=== PATIENT | female | born 1965 | race Caucasian/White ===

== ENCOUNTER → 2020-07-24 | Outpatient (REF) | payer OTHER ==
[~2020-07-24] MED LIST: ACYC400T PO; DIFL200T PO; LEVO30TA PO; ONDA8TAB10 PO; PRED10TA2 PO; PRED50TA PO; PROC10TA4 PO; ZYLO300T6 PO
== END ==
LOC: M LAB REF 15:23
PROVIDERS: ATTEND Otolaryngology
DX: D36.7 Benign neoplasm of other specified sites (principal)

== ENCOUNTER → 2020-07-27 | Outpatient (CLI) | payer OTHER ==
[~2020-07-27] MED LIST changes: +ISOVUE-370 76% 100ML VIAL As Ordered ONE
--- NOTE | 2020-07-27 15:54 | REPVR ---
PROCEDURE INFORMATION: Exam: CT Neck With Contrast Exam date and time: 07/27/2020 3:19 PM Age: 55 years old Clinical indication: Other: Suspected malignant neoplasm of thyroid TECHNIQUE: Imaging protocol: Computed tomography images of the neck with intravenous contrast. Radiation optimization: All CT scans at this facility use at least one of these dose optimization techniques: automated exposure control; mA and/or kV adjustment per patient size (includes targeted exams where dose is matched to clinical indication); or iterative reconstruction. Contrast material: ISOVUE 370; Contrast volume: 75 ml; Contrast route: INTRAVENOUS (IV); COMPARISON: No relevant prior studies available. 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 Trace amount of mucosal thickening floor of right maxillary sinus.. Nasopharynx: Unremarkable. Dental: Most of the teeth are missing. Dental caries are noted in some of the remaining teeth Oropharynx: The mass extends asymmetrically into the right parapharyngeal fat and displaces the carotid sheath structures on the right laterally . Hypopharynx: Unremarkable. Larynx: The larynx narrows to a diameter of 3 mm at the level of the true cords. Normal epiglottis. Retropharyngeal space: Unremarkable. Submandibular/Parotid glands: Normal. Glands are normal in size. Thyroid: There is an infiltrative mass noted within the neck extending from the thyroid gland inferiorly , coursing superiorly within precervical soft tissues displacing the oropharynx anteriorly and to the left. the infiltrative neoplasm is heterogeneous in density with solid and cystic components. Lymph nodes: Unremarkable. No lymphadenopathy. Trachea: Visualized trachea is unremarkable. Lungs: There is paraseptal type emphysema at the lung apices. Bones/joints: Unremarkable. No acute fracture. Vasculature: Inferiorly the mass encases the left common carotid artery and the internal jugular vein. Thrombus is noted within the left internal jugular vein just below the left carotid bulb. Soft tissues: Tumor infiltration into the left sternocleidomastoid muscle is suggested IMPRESSION: 1. Solid and cystic Infiltrative soft tissue mass extending from the base of the both lobes of the thyroid coursing superiorly to approximate level C2. There is mass effect upon the oropharynx and hypopharynx and apparent narrowing of the airway at the level of the true cords. The airway narrowing could be artifact related to phonation. Clinical correlation needed. 2. Partial thrombosis of the left jugular vein. 3. Mild emphysema 4. Minimal mucosal thickening/debris within the maxillary sinuses bilaterally COMMENTS: Consistent with the [employer]'s Incidental Findings Committee white paper (J Am Aldair Radiol 2015): In patients aged 35 years and older with an incidental thyroid nodule equal to or greater than 1.[address], MRI or extrathyroidal US, further evaluation with dedicated thyroid US is recommended for patients with normal life expectancy and without comorbidities. For smaller nodules without suspicious features, no further evaluation or follow up is recommended. Electronically signed by: Silvina Martin On 07/27/2020 15:54:03 PM
== END ==
LOC: M RAD 15:00
PROVIDERS: ATTEND Otolaryngology
DX: C76.0 Malignant neoplasm of head, face and neck (principal); I82.C12 Acute embolism and thrombosis of left internal jugular vein; J43.9 Emphysema, unspecified
CPT/HCPCS: 70491; Q9967

== ENCOUNTER → 2020-09-04 | Outpatient (CLI) | payer OTHER ==
[~2020-09-04] MED LIST changes: -ISOVUE-370 76% 100ML VIAL As Ordered ONE
--- NOTE | 2020-09-05 09:49 | REP ---
INDICATION: STAGING LARGE B CELL LYMPHOMA COMPARISON: Comparison soft tissue neck CT study July 27, 2020.. TECHNIQUE: Fifty-four minutes following the intravenous injection of a 8.17 mCi dose of F-18 FDG, three-dimensional PET scintigraphy is acquired from the skull base to the proximal thighs. Triplanar noncontrast CT scanning is acquired through the same anatomic range for attenuation correction, and image registration with scan parameters optimized to minimize radiation exposure to the patient. PET scintigraphy and CT datasets were fused and displayed on a workstation with multiplanar and projection display capability. FINDINGS: The large trans spatial neck mass with its epicenter in the retropharyngeal soft tissues and extending bilaterally is quite hypermetabolic. Maximum standard uptake value within this extensive neck soft tissue mass is quite high, maximum SUV value of 39.44. There is a tiny 1 cm node along the left lateral contour of the main mass which is also hypermetabolic, maximum SUV value of 16.50. There is no other abnormal hannah uptake in the neck. There is a right superior mediastinal node which is hypermetabolic uptake, maximum SUV value 7.93. This measures 1.1 cm in greatest diameter. No other abnormal mediastinal hypermetabolic uptake is seen. There is right to left compression of the trachea. No axillary hypermetabolic uptake is seen. No other abnormal uptake is seen in the chest. In the abdomen and pelvis, there is normal hepatic, splenic, gastrointestinal, genitourinary FDG accumulation. No abnormal uptake is seen in the abdomen or pelvis. IMPRESSION: Large trans spatial bulky neck mass is markedly hypermetabolic. There is 1 right superior mediastinal lymph node which is also hypermetabolic. No other distant sites of hypermetabolic uptake. <Electronically signed by Duran Rubio > 09/05/20 0289
== END ==
LOC: M PLARAD 09:30
PROVIDERS: ATTEND Internal Medicine Hematology
DX: C85.90 Non-Hodgkin lymphoma, unspecified, unspecified site (principal); R22.1 Localized swelling, mass and lump, neck
CPT/HCPCS: 78815; A9552

== ENCOUNTER → 2020-09-05 | Outpatient (CLI) | payer OTHER ==
[~2020-09-05] MED LIST changes: +LIDOCAINE 1% MDV 20ML VIAL As Ordered ONE; +MIDAZOLAM INJ 2MG/2ML VIAL (J2250 PER 1MG) As Ordered ONE; +ceFAZolin 1GM VIAL (J0690 PER 500MG) As Ordered ONE; +diphenhydrAMINE 50MG/ML VIAL (J1200) As Ordered ONE; +fentaNYL 100 MCG/2 ML INJECTION (J3010) As Ordered ONE
--- NOTE | 2020-09-05 12:09 | IRHP ---
[facility] IR Pre-Procedure H & P General Date of Service: Sep 05, 2020 Procedure: Same Day Surgery Interval History and Physical I have seen the patient and reviewed last H & P performed within 30 days. There is no significant interval change. History of Present Illness Chief Complaint The patient is a 55-year-old female admitted with a reason for visit of Lymphoma. PRE-PROCEDURE DIAGNOSIS: lymphoma HEART: normal rate. LUNGS: normal breathing at rest. ASA Classification ASA Classification: III-Severe systemic dis. Mallampati Score: II NPO: Yes Problems with prior sedation: No Obstructive Sleep Apnea: No Plan moderate sedation Allergies Coded Allergies: No Known Allergies (Unverified , 08/29/20) Home Medications Scheduled Acyclovir (Acyclovir), 400 MG PO BID Allopurinol (Zyloprim), 1 TAB PO DAILY Fluconazole (Diflucan), 200 MG PO DAILY Prednisone (Prednisone), 10 MG PO DAILY VS, I&O, 24H, Fishbone Vital Signs/I&O Vital Signs Date Time Temp Pulse Resp B/P (MAP) Pulse Ox O2 Delivery O2 Flow Rate FiO2 09/05/20 11:34 98.4 86 20 99 Room Air JUAN DAVID KWONG MD Sep 05, 2020 12:09
--- NOTE | 2020-09-05 13:44 | POST-OPPD ---
Postoperative Procedure Note Date Of Procedure: Sep 05, 2020 Time Of Procedure: 13:40 IR Ultrasound and fluoroscopy-guided port placement. IR Ultrasound of the neck. IR Moderate sedation. Clinical information: Lymphoma. Physician: Dr. Payton. Procedure: The patient was advised of the benefits, risks, and alternatives of the procedure and informed consent was obtained. A time-out was performed with verification of the patient's name, MRN, site of procedure and type of procedure to be performed. The patient was positioned in the supine position on the angiographic table. The site was prepped and draped in the usual sterile fashion. Moderate sedation was performed by the physician including the presence of an independent trained RN who assisted and monitored the patient's level of consciousness and physiologic status. Following the administration of fentanyl and Versed , the physician spent 45 minutes of continuous face to face time with the patient. Ultrasound of the neck reveals a patent and compressible right internal jugular vein. Enlarged, hyper and isoechoic masses. A transportation technician radiograph reveals mediastinal fullness. The neck and anterior chest wall were anesthetized with lidocaine. The right internal jugular vein was accessed using a microintroducer needle under ultrasound guidance, via a lateral approach. An 018 wire was advanced into the superior vena cava, the needle was removed and a microsheath was placed. An Amplatz wire was then passed into the inferior vena cava. An incision at the internal jugular vein access site and anterior chest wall were made using a scalpel. An incision was made at the anterior chest wall. A small pocket was created using a combination of blunt and sharp dissection. A tunneling device was then used to pass the catheter from the pocket to the neck puncture site. An 8- [employer] Smart power port was then positioned in the pocket. The catheter was then measured and cut. The introducer sheath was exchanged for a peel-away sheath. The catheter was passed through the peel-away sheath into the internal jugular vein and the peel-away sheath was removed. The port tip was positioned at the cavoatrial junction. The port was then accessed with a Simon needle. The port flushes and aspirates well. The puncture site in the neck was closed. The chest wall incision was then closed with 2-0 Vicryl and 4-0 Monocryl. Glue and Steri- Strips were applied. A sterile dressing was then applied. The patient tolerated the procedure well and was returned to the PRU in stable condition. Estimated blood loss: <5 ml. Complications: None. Conclusion: 1. Successful placement of an 8-[place] Ang[employer] Smart power port via the right internal jugular vein. The port is ready for immediate use. 2. Patient to follow up in IR clinic in 2 weeks. Thank you for this referral. JUAN DAVID PAYTON MD Sep 05, 2020 13:44
[2020-09-05 14:40] VITALS: BP 127/72
== END ==
LOC: M IRPRO 11:20
PROVIDERS: ATTEND Radiology Diagnostic Radiology
DX: C85.90 Non-Hodgkin lymphoma, unspecified, unspecified site (principal)
CPT/HCPCS: 36561; 99152; 99153; C1769; C1788; C1894; J0690; J1642; J1644; J2250; J3010

== ENCOUNTER → 2020-09-05 | Outpatient (CLI) | payer OTHER ==
[~2020-09-05] MED LIST changes: -LIDOCAINE 1% MDV 20ML VIAL As Ordered ONE; -MIDAZOLAM INJ 2MG/2ML VIAL (J2250 PER 1MG) As Ordered ONE; -ceFAZolin 1GM VIAL (J0690 PER 500MG) As Ordered ONE; -diphenhydrAMINE 50MG/ML VIAL (J1200) As Ordered ONE; -fentaNYL 100 MCG/2 ML INJECTION (J3010) As Ordered ONE
--- NOTE | 2020-09-11 07:22 | ECHO ---
DATE OF PROCEDURE: 09/05/2020 Age: 55 Gender: Female REFERRING PHYSICIAN: Dr. Ian Fernando PATIENT LOCATION: Outpatient. REASON FOR THE STUDY: Heart murmur MEASUREMENTS: 2D measurements: IVS 1.1 cm LV 4.9. cm LVPW 1.1 cm LA 3.5 cm Aorta 3.1 cm IVC 1.3 cm DOPPLER MEASUREMENTS: Peak velocity for the aortic valve 1.2 meters per second Peak velocity across the LVOT 0.96 meters per second Mitral E 0.59, mitral A 0.54 with a ratio of 1.1 2D COMMENTS: 1. Normal left ventricular size, wall thickness and low normal global left ventricular systolic function. Estimated left ventricular systolic ejection fraction is 50 to 55%. 2. Normal left atrium. Normal right atrium and right ventricle. 3. The atrial septum appears to be normal without evidence of defect or shunt. 4. Normal aortic root. 5. No pericardial effusion seen. 6. The aortic valve, mitral valve, tricuspid valve and pulmonic valve appear to be normal. The proximal pulmonary artery branches were not well visualized. 7. The inferior vena cava was normal in size, central venous pressure is most likely normal. DOPPLER: Detects mild mitral regurgitation. Abnormal relaxation pattern was noted across the mitral valve annulus consistent with features of grade 2 left ventricular diastolic dysfunction. A pseudonormal pattern was noted. IMPRESSION: 1. Normal global left ventricular systolic function. There are features of left ventricular diastolic dysfunction, grade 2. 2. Mild mitral regurgitation. MTDD
== END ==
LOC: M CARPUL 09:02
PROVIDERS: ATTEND Internal Medicine Hematology
DX: C83.31 Diffuse large B-cell lymphoma, lymph nodes of head, face, and neck (principal); R01.1 Cardiac murmur, unspecified

== ENCOUNTER → 2020-09-18 | Outpatient (POV) | payer OTHER ==
--- NOTE | 2020-09-19 12:01 | IRPN ---
[facility] IR Progress Note IR Progress Note DATE: Sep 18, 2020 Patient agreed to this telephone follow-up. Duration of call 5 minutes. FOLLOW-UP: Status post port placement. Patient denies fevers chills pain or discharge at site. Port has been used without any issues. ON EXAMINATION: Video teleconference was performed. Port site appears to be healing well. Steri-Strips are still in place. No redness swelling or discharge. IMPRESSION: Doing well status post port placement. No further follow-up scheduled unless initiated by patient and or referring provider. Thank you for this referral Allergies Coded Allergies: No Known Allergies (Unverified , 08/29/20) JUAN DAVID KWONG MD Sep 19, 2020 12:01
== END ==
LOC: M TMIRPOV 09:02
PROVIDERS: ATTEND Radiology Diagnostic Radiology
DX: Z45.2 Encounter for adjustment and management of vascular access device (principal)

== ENCOUNTER → 2020-12-12 | Outpatient (CLI) | payer OTHER ==
[~2020-12-12] MED LIST changes: +GABA-1171 PO; +[UNRECOGNIZED DRUG - CODE] SC
--- NOTE | 2020-12-17 10:32 | ECHO ---
DATE OF PROCEDURE: 12/12/2020 Age: 55 Gender: Female Height: 66 inches Weight: 163 pounds REFERRING PHYSICIAN: Henry France MD INDICATION: Chemotherapy drugs that may effect the heart. MEASUREMENTS: 2D Measurements: Aortic root 3.0 cm Left atrium 2.9 cm Left ventricle diastole 4.5 cm Intraventricular septum 1.15 cm Posterior wall 1.22 cm Left atrial volume index 20 Inferior vena cava 1.0 cm (more than 50% respiratory variation). Doppler Measurements: No aortic stenosis No aortic regurgitation Aortic valve velocity 112 cm/s LVOT velocity 74.4 cm/s Very mild mitral regurgitation Mitral E velocity 52.3 cm/s Mitral A velocity 66.4 cm/s Mitral deceleration time 124 msec No tricuspid regurgitation Very mild pulmonic regurgitation Pulmonary artery acceleration time 114 msec MITRAL ANNULAR TISSUE DOPPLER E prime septal 5.4 cm/s, E prime lateral 6.6 cm/s DESCRIPTION: Rhythm was sinus. Image quality was good. This was a 2D, M-mode, color flow Doppler, and pulsed wave Doppler examination and included longitudinal strain pattern analysis and 3D assessment of left ventricle ejection fraction. CONCLUSIONS: 1. Normal left ventricle internal dimensions. Borderline for concentric left ventricular hypertrophy. Moderate global hypokinesis especially involving intraventricular septum with the exception of normal contraction involving the basal inferolateral segment. Moderate reduction of overall LV systolic function. LVEF 40% (3D). Mild overall reduction in peak longitudinal strain of the left ventricle, more so involving the intraventricular septum and the exception of normal longitudinal strain involving the basal inferolateral segment. 2. Normal left atrial volume index. 3. Normal right ventricle size and systolic function. 4. No pericardial effusion. 5. Otherwise normal appearing echocardiogram Doppler findings. MTDD
== END ==
LOC: M CARPUL 09:19
PROVIDERS: ATTEND Specialist
DX: C85.12 Unspecified B-cell lymphoma, intrathoracic lymph nodes (principal)

== ENCOUNTER → 2020-12-20 | Outpatient (CLI) | payer OTHER ==
[2020-12-20 12:24] LABS: FOLATE 6.4 NG/ML (>5.4)
[2020-12-20 12:49] LABS: HEMOGLOBIN A1c 5.5 %
== END ==
LOC: M WUC 09:55
PROVIDERS: ATTEND Psychiatry & Neurology Neurology
DX: E11.40 Type 2 diabetes mellitus with diabetic neuropathy, unspecified (principal); E53.8 Deficiency of other specified B group vitamins

== ENCOUNTER → 2021-02-07 | Outpatient (CLI) | payer OTHER ==
[~2021-02-07] MED LIST changes: +DULO1CAP4; +LEVO50TA5 PO; +NEUR300C PO; +VARE05TA PO
--- NOTE | 2021-02-07 10:47 | RADONC.CN ---
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 She received R-CHOP x 6 cycles completed 12/27/20. This was complicated by BL foot drop from vincristine which was held for the final 2 cycles. She is seen today for consideration of consolidative ISRT. Diagnosis/Treatment History Oncologic History May 2020: Noted BL neck swelling July 2020: Sought medical attention at [facility] ED where CT scan revealed massive adenopathy in the BL necks 07/25/21: FNA of the neck with atypical lymphocytes 08/01/21: Excisional thyroid biopsy ([facility], [place]) showing DLBCL GCB type, MYC-, BCL2+ 09/04/21: PET-CT with massive BL cervical adenopathy extending to upper mediastinum, no obvious involvement of waldeyer's ring 09/12/21-12/27/20: R-CHOP x 6 cycles, last 2 vincristine withheld d/t foot drop Interval History Here with her . No pain in the neck, notes minimal residual swelling. Breathing and swallowing without difficulty. She has ongoing numbness and weakness in the distal LEs BL. Follows with neurology for her foot drop. Appetite good weight stable. Does not have a dentist. Past Medical History: Hypothyroid Past Surgical History: Left knee surgery Family History: No family cancer history Social History: 35 pack year current smoker Former drinker, does not currently Allergies / Meds Allergies: Coded Allergies: No Known Allergies (Unverified , 08/29/20) Home Meds Active Scripts Levothyroxine Sodium (LEVOTHYROXINE SODIUM) 50 Mcg Tablet, 50 MCG PO DAILY for hypothyroid MDD 50 mg for 30 Days, #30 TAB 6 Refills Prov:LISA WOOTEN MD 01/28/21 Varenicline (Chantix) 0.5 Mg Tablet, 0.5 MG PO BID for 30 Days, #60 TAB 1 Refill Prov:LISA WOOTEN MD 12/27/20 Levothyroxine Sodium (Levo-T) 25 Mcg Tablet, 25 MCG PO DAILY for 30 Days, #30 TAB 4 Refills Prov:LISA WOOTEN MD 12/27/20 Prochlorperazine Maleate (Prochlorperazine Maleate) 10 Mg Tablet, 10 MG PO Q6HP for nausea for 15 Days, #60 TAB Prov:LISA WOOTEN MD 09/10/20 Ondansetron HCl (Ondansetron HCl) 8 Mg Tablet, 8 MG PO TID for nausea/vomiting for 10 Days, #30 TAB Prov:LISA WOOTEN MD 09/10/20 Reported Medications Duloxetine Hcl (Duloxetine HCl) 20 Mg Capsule. 02/07/21 Gabapentin (Neurontin) 300 Mg Capsule, 300 MG PO TID for 30 Days, #90 CAP 01/28/21 Review of Systems General: Reports: Normal Appetite Constitutional: Denies: Chills, Fever, Night Sweats Eyes: Denies: Pain, Vision change HEENT: Denies: Head Aches, Dysphagia, Sore Throat Skin: Denies: Rash, Lesions, Bruising Pulmonary: Denies: Dyspnea, Cough Cardiovascular: Denies: Chest Pain, Palpitations, Edema Gastrointestinal: Denies: Nausea, Vomiting, Abdominal Pain, Diarrhea Genitourinary: Denies: Dysuria, Frequency, Incontinence Hematologic: Denies: Bruising, Petecchia, Enlarged Lymph Nodes Musculoskeletal: Denies: Neck pain, Back pain Neurological: Reports: Weakness, Numbness; Denies: Incoordination Psych: Reports: Mood Normal; Denies: Memory Issues, Thoughts of Self Harm Vital Signs Ht 67" Wt 167 lbs BMI 26 T 99 P 102 RR 18 BP 130/86 O2 99% Pain 0 Fatigue 0 General Exam: Positive: Alert, Cooperative, No Acute Distress Eye Exam: Positive: PERRLA, EOMI ENT EXAM: Positive: Mucous membr. moist/pink, Pharynx Normal (No masses or swelling in the tonsillar fossae BL. ), Tongue Midline, Other ENT (Most teeth missing, has 22-25 which are not broken) Neck Exam: Positive: Other (Overlying skin of BL necks with scattered h ypopigmentation ); Negative: Thyromegaly, Lymphadenopathy Chest Exam: Positive: Normal air movement; Negative: Rales, Rhonchi, Wheezing Heart Exam: Positive: Rate Normal, Regular Rhythm Extremity Exam: Negative: Edema Skin Exam: Positive: Nl turgor and temperature Neuro Exam: Positive: Normal Speech, Cranial Nerves 3-12 NL Psych Exam: Positive: Mental status NL Other Physical Findings Complete node bearing area exam performed: Waldeyer's ring, cervical, supraclavicular, axillary, epitrochlear, intrabdominal, inguinal and popiteal fossae without palpable mass or adenopathy. Diagnostic and Laboratory Diagnostic Review Radiologic images, relevant labs and pathology reports were personally reviewed and discussed with Ms. Betancourt. Assessment and Plan Impression Ms. 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 She received R-CHOP x 6 cycles complete d 12/27/20. This was complicated by BL foot drop from vincristine which was held for the final 2 cycles. She is seen today for consideration of consolidative ISRT. Stage DLBCL GCB type Stage II Performance Status ECOG 1 Plan We had an extensive discussion with Ms. Betancourt regarding the diagnosis at hand and available therapeutic options. She presented with bulk disease and has had a good clinical response to chemotherapy with no hannah burden apparent on her exam today. Because of the bulk at diagnosis I recommend consolidative ISRT with dose fractionation contingent upon PET-CT response. I will order an [id number] PET-CT to solidify my plan. If the PET-CT is negative then I will give 30.6 Gy in 17 fractions to initially involved sites. If she has residual avidity then I will increase the dose focally to clear any smoldering involved nodes. She will also need dental clearance prior to RT. I will refer her to Dr. Lara for this. We discussed the logistics of receiving radiation therapy in detail including the need for a 1-time planning session. This can occur in 2 weeks to facilitate dental and PET-CT We reviewed the side effects of RT which will include skin reaction fatigue, and mild-moderate mucositis (contingent upon total dose). She should tolerate treatment well. She is already hypothyroid and this stands to worsen in time after RT to the necks, therefore I will monitor this in the survivorship phase of her care. After discussing the risks, benefits and alternatives to radiation therapy, Ms. Betancourt was amenable to pursuing radiotherapy. All questions were answered to the patient's satisfaction. We instructed the patient that if there were any questions,concerns or changes in clinical status in the interim to contact us. Recommendations Consolidative ISRT with dose/fractionation contingent upon PET-CT PET-CT ordered Dental referral placed Simulation in 2 weeks Billing Statement Total time of [46] minutes was spent preparing for the visit [3], obtaining HPI [5], examining the patient [4], reviewing diagnostic tests [4], discussing management options [16], coordinating care [3], and writing this note [11]. AMARA PELAEZ MD Feb 07, 2021 10:47
== END ==
LOC: M ONCR 08:47
PROVIDERS: ATTEND General Practice
DX: C83.31 Diffuse large B-cell lymphoma, lymph nodes of head, face, and neck (principal); E03.9 Hypothyroidism, unspecified; F17.210 Nicotine dependence, cigarettes, uncomplicated; Z79.899 Other long term (current) drug therapy

== ENCOUNTER → 2021-02-25 | Outpatient (CLI) | payer OTHER ==
[~2021-02-25] MED LIST changes: +ACYC1TAB PO; -ACYC400T PO
--- NOTE | 2021-02-26 08:04 | REP ---
INDICATION: RESTAGING DIFFUSE LARGE B MENDY LYMPHOMA. Post chemotherapy. COMPARISON: Comparison PET-CT study September 04, 2020.. TECHNIQUE: Fifty minutes following the intravenous injection of a 17.19 mCi dose of F-18 FDG, three-dimensional PET scintigraphy is acquired from the skull base to the proximal thighs. Triplanar noncontrast CT scanning is acquired through the same anatomic range for attenuation correction, and image registration with scan parameters optimized to minimize radiation exposure to the patient. PET scintigraphy and CT datasets were fused and displayed on a workstation with multiplanar and projection display capability. FINDINGS: Head and neck soft tissues show dramatic improvement. There is no evidence of hypermetabolic hannah uptake or residual adenopathy. There is mild in diffuse bilateral thyroid gland uptake, right more so than left consistent with physiologic thyroid uptake. Maximum standard uptake value 5.83. No other focal hypermetabolic uptake is seen in the head and neck soft tissues. There is no abnormal hypermetabolic uptake in the chest. A right-sided Lavsis-Y-Kpes catheter is noted. No hilar or mediastinal hannah uptake is seen. No abnormal pulmonary parenchymal uptake is observed. In the abdomen and pelvis, normal hepatic, splenic, gastrointestinal, and genitourinary FDG accumulation is seen. No abnormal hypermetabolic uptake is seen in the abdomen or pelvis. No abnormal skeletal uptake. IMPRESSION: Negative PET scintigraphy. <Electronically signed by Duran Rubio > 02/26/21 0800
== END ==
LOC: M PLARAD 10:58
PROVIDERS: ATTEND General Practice
DX: C83.31 Diffuse large B-cell lymphoma, lymph nodes of head, face, and neck (principal)
CPT/HCPCS: 78815; A9552

== ENCOUNTER 2021-03-06 09:51 | Outpatient (RCR) | payer OTHER | END 2021-03-08 | LOC: M ONCR 09:51 | PROVIDERS: ATTEND General Practice | DX: C83.31 Diffuse large B-cell lymphoma, lymph nodes of head, face, and neck (principal) ==

== ENCOUNTER 2021-04-05 08:02 | Outpatient (RCR) | payer OTHER ==
[~2021-04-05 08:02] MED LIST changes: +MAGICMW PO; +OXYC-517 PO
== END 2021-04-08 ==
LOC: M ONCR 08:02
PROVIDERS: ATTEND General Practice
DX: C83.31 Diffuse large B-cell lymphoma, lymph nodes of head, face, and neck (principal)

== ENCOUNTER 2021-04-12 08:01 | Outpatient (RCR) | payer OTHER ==
[~2021-04-12 08:01] MED LIST changes: -DULO1CAP4; +DULO1CAP4 PO
== END 2021-05-08 ==
LOC: M ONCR 08:01
PROVIDERS: ATTEND General Practice
DX: C83.31 Diffuse large B-cell lymphoma, lymph nodes of head, face, and neck (principal)

== ENCOUNTER → 2021-05-07 | Outpatient (POV) | payer OTHER ==
[~2021-05-07] VITALS: Ht 170.2 cm; Wt 70.4 kg
[2021-05-07 14:08] VITALS: BP 136/83
--- NOTE | 2021-05-09 12:31 | IRPN ---
[facility] IR Progress Note IR Progress Note DATE: May 07, 2021 FOLLOW-UP: 56-year-old female with history of lymphoma, status post right chest port placement by me in August 2020. Patient states the port worked well. Her treatment is complete, her last chemotherapy was in January 2021. She would like her port removed. ON EXAMINATION: Right chest port in place. No overlying cellulitis. IMPRESSION: Patient status post port placement, has now completed therapy and would like her port removed. Patient has no interest in keeping the port for further future follow-ups. We discussed the risks and benefits of port removal and patient is agreeable to proceed. We have scheduled the patient for port removal. Thank you for this referral Allergies Coded Allergies: No Known Allergies (Unverified , 08/29/20) VS,Fishbone, I+O VS, Fishbone, I+O Vital Signs Date Time Temp Pulse Resp B/P (MAP) Pulse Ox O2 Delivery O2 Flow Rate FiO2 05/07/21 14:08 97.5 96 18 136/83 (100) 99 Room Air JUAN DAVID KWONG MD May 09, 2021 12:31
== END ==
LOC: M IRPOV 14:00
PROVIDERS: ATTEND Radiology Diagnostic Radiology
DX: Z45.2 Encounter for adjustment and management of vascular access device (principal); Z85.72 Personal history of non-Hodgkin lymphomas; Z92.21 Personal history of antineoplastic chemotherapy

== ENCOUNTER → 2021-05-09 | Outpatient (CLI) | payer OTHER ==
[~2021-05-09] MED LIST changes: +LIDOCAINE 1% MDV 20ML VIAL As Ordered ONE; +LIDOCAINE W/EPINEPHRINE 1% 20ML VIAL As Ordered ONE; +MIDAZOLAM INJ 2MG/2ML VIAL (J2250 PER 1MG) As Ordered ONE; +ceFAZolin 2 GM/D5W 50 ML IV BAG (J0690 PER 500MG) As Ordered ONE; +diphenhydrAMINE 50MG/ML VIAL (J1200) As Ordered ONE; +fentaNYL 100 MCG/2 ML INJECTION (J3010) As Ordered ONE
--- NOTE | 2021-05-09 13:26 | IRHP ---
[facility] IR Pre-Procedure H & P General Date of Service: May 09, 2021 Procedure: Same Day Surgery Interval History and Physical I have seen the patient and reviewed last H & P performed within 30 days. There is no significant interval change. History of Present Illness Chief Complaint The patient is a 56-year-old female admitted with a reason for visit of Lymphoma. PRE-PROCEDURE DIAGNOSIS: Lymphoma. tx complete HEART: normal rate. LUNGS: normal breathing at rest. ASA Classification ASA Classification: II-Mild systemic disease, III-Severe systemic dis. Mallampati Score: II NPO: Yes Problems with prior sedation: No Obstructive Sleep Apnea: No Plan moderate sedation Allergies Coded Allergies: No Known Allergies (Unverified , 08/29/20) Home Medications Scheduled Duloxetine Hcl (Duloxetine HCl), 40 MG PO DAILY, (Reported) Gabapentin (Neurontin), 300 MG PO TID, (Reported) Levothyroxine Sodium (Levothyroxine Sodium), 50 MCG PO DAILY Discontinued Medications Magic Mouthwash (First-Mouthwash Blm), 10 ML PO QID PRN for MUCOSITIS Discontinued Reason: Pt states not taking Ondansetron HCl (Ondansetron HCl), 8 MG PO TID Discontinued Reason: Pt states not taking Oxycodone HCl (Oxycodone HCl), 1 TAB PO QIDP PRN for pain Discontinued Reason: Pt states not taking Prochlorperazine Maleate (Prochlorperazine Maleate), 10 MG PO Q6HP Discontinued Reason: Pt states not taking Varenicline (Chantix), 0.5 MG PO BID Discontinued Reason: Pt states not taking VS, I&O, 24H, Fishbone Vital Signs/I&O Vital Signs Date Time Temp Pulse Resp B/P (MAP) Pulse Ox O2 Delivery O2 Flow Rate FiO2 05/09/21 13:00 74 18 100 Nasal Cannula 2.0 05/09/21 12:50 97.0 JUAN DAVID KWONG MD May 09, 2021 13:26
[2021-05-09 15:30] VITALS: BP 127/81
--- NOTE | 2021-05-14 09:27 | IRPON ---
IR Postoperative Note Date Of Procedure: May 09, 2021 Time Of Procedure: 16:00 IR Postoperative Note IR Port Removal / Explant. IR Moderate sedation. Clinical Information:Lymphoma. Treatment complete. Patient would like her port removed. Physician: Dr. Payton Procedure: The patient was advised of the benefits, risks, and alternatives of the procedure and informed consent was obtained. A time out was performed with verification of the patient's name, MRN, site of procedure, and type of procedure to be performed. The patient was positioned in the supine position on the angiographic table. The site was prepped and draped in the usual sterile fashion. Moderate sedation was performed by the physician including the presence of an independent trained RN who assisted in monitoring the patient's level of consciousness and physiological status. Following the administration of fentanyl and Versed the physician spent 30 minutes of continuous [id number] time with the patient. 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 The soft tissues overlying the port were anesthetized with lidocaine. An incision was made over the port using a 15 blade scalpel in the location of the prior incision. The catheter was then freed with blunt dissection and extracted. Pressure was applied to obtain hemostasis. The port was then freed with blunt dissection and subsequently removed. There were no signs of infection. After hemostasis was achieved, the incision was closed with interrupted deep 3-0 Vicryl sutures and subcuticular Monocryl suture followed by glue and steri-strips. The site was covered with a sterile dressing. The patient tolerated the procedure well and was returned to the PRU in stable condition. EBL:Less than 5 mL Complications:None. Conclusions: 1. Successful explant of a right-sided port. 2. No signs of infection. Thank you for this referral JUAN DAVID PAYTON MD May 14, 2021 09:26
== END ==
LOC: M IRPRO 12:38
PROVIDERS: ATTEND Radiology Diagnostic Radiology
DX: C83.30 Diffuse large B-cell lymphoma, unspecified site (principal); Z79.890 Hormone replacement therapy; Z92.21 Personal history of antineoplastic chemotherapy
CPT/HCPCS: 36590; 99152; 99153; J0690; J1200; J1644; J2250; J3010

== ENCOUNTER → 2021-05-28 | Outpatient (POV) | payer OTHER ==
[~2021-05-28] VITALS: Ht 170.2 cm; Wt 68.1 kg
[~2021-05-28] MED LIST changes: -LIDOCAINE 1% MDV 20ML VIAL As Ordered ONE; -LIDOCAINE W/EPINEPHRINE 1% 20ML VIAL As Ordered ONE; -MIDAZOLAM INJ 2MG/2ML VIAL (J2250 PER 1MG) As Ordered ONE; -ceFAZolin 2 GM/D5W 50 ML IV BAG (J0690 PER 500MG) As Ordered ONE; -diphenhydrAMINE 50MG/ML VIAL (J1200) As Ordered ONE; -fentaNYL 100 MCG/2 ML INJECTION (J3010) As Ordered ONE
[2021-05-28 08:40] VITALS: BP 134/98
--- NOTE | 2021-05-29 11:34 | IRPN ---
[facility] IR Progress Note IR Progress Note DATE: May 28, 2021 FOLLOW-UP: Status post port removal. Patient doing well. Denies pain, discharge at site, fevers or chills. ON EXAMINATION: Port removal site appears to be healing well. No redness or discharge. IMPRESSION: Doing all status post port removal. No further follow-up scheduled unless initiated by patient and/or referring provider. Thank you for this referral Allergies Coded Allergies: No Known Allergies (Unverified , 08/29/20) VS,Fishbone, I+O VS, Fishbone, I+O Vital Signs Date Time Temp Pulse Resp B/P (MAP) Pulse Ox O2 Delivery O2 Flow Rate FiO2 05/28/21 08:40 97.6 87 18 134/98 (110) 98 Room Air JUAN DAVID KWONG MD May 29, 2021 11:34
== END ==
LOC: M IRPOV 08:34
PROVIDERS: ATTEND Radiology Diagnostic Radiology
DX: Z45.2 Encounter for adjustment and management of vascular access device (principal)

== ENCOUNTER → 2021-07-08 | Outpatient (CLI) | payer OTHER ==
[~2021-07-08] MED LIST changes: +ISOVUE-370 76% 100ML VIAL As Ordered ONE
--- NOTE | 2021-07-08 12:40 | REPVR ---
PROCEDURE INFORMATION: Exam: CT Neck With Contrast Exam date and time: 07/08/2021 12:08 PM Age: 56 years old Clinical indication: Condition or disease; Cancer; Other: Lymphoma TECHNIQUE: Imaging protocol: Computed tomography images of the neck with contrast. Radiation optimization: All CT scans at this facility use at least one of these dose optimization techniques: automated exposure control; mA and/or kV adjustment per patient size (includes targeted exams where dose is matched to clinical indication); or iterative reconstruction. Contrast material: ISOVUE 370; Contrast volume: 100 ml; Contrast route: INTRAVENOUS (IV); COMPARISON: CT Neck 07/27/2020 FINDINGS: Paranasal sinuses: There is an air-fluid level within the left maxillary sinus. Nasopharynx: Unremarkable. Oropharynx: Unremarkable. No significant tonsillar enlargement. Hypopharynx: Unremarkable. Larynx: Unremarkable. Normal epiglottis. Retropharyngeal space: Unremarkable. Submandibular/Parotid glands: Normal. Glands are normal in size. Thyroid: Normal. No enlarged or calcified nodules. Lymph nodes: Unremarkable. No lymphadenopathy. Trachea: Visualized trachea is unremarkable. Lungs: Unremarkable as visualized. Bones/joints: Unremarkable. No acute fracture. Soft tissues: Previously apparent extensive infiltrative soft tissue involving the parapharyngeal, vascular and prevertebral soft tissues with extension into the upper neck and infiltration of the left sternocleidomastoid muscle has essentially resolved. IMPRESSION: Resolution of previously apparent extensive infiltrative soft tissue mass. Electronically signed by: Lynette Andersen On 07/08/2021 12:39:30 PM
--- NOTE | 2021-07-10 06:18 | REP ---
INDICATION: LYMPHOMA COMPARISON: PET-CT dated 02/25/2021 TECHNIQUE: Axial contrast enhanced images from the thoracic inlet to the upper abdomen with coronal and sagittal reformations using 75 ml Isovue 370 intravenous contrast material[address] CT examination was performed using the following dose reduction techniques: Automated exposure control, adjustment of mA and/or kv according to the patient's size, and use of iterative reconstruction technique. FINDINGS: The bilateral lung payne are relatively symmetric and well aerated demonstrating minimal scattered small blebs and scattered chronic appearing interstitial changes. Subtle posterior basilar atelectasis/dependent changes are suggested. Few small 2-3 mm nodules identified. No significant nodule or mass lesion. No consolidation or pleural effusion. Mediastinum demonstrates normal pulmonary vasculature, thoracic aorta and heart/pericardium. No axillary, hilar, or mediastinal adenopathy. Thyroid gland is grossly normal by CT evaluation. Surrounding musculoskeletal structures are intact and without acute osseous abnormality. Limited upper abdomen demonstrates normal bilateral adrenal glands. IMPRESSION: 1. Minimal parenchymal changes as noted above likely essentially chronic in appearance. 2. No adenopathy. <Electronically signed by Christian Shaffer > 07/10/21 0614
== END ==
LOC: M RAD 11:52
PROVIDERS: ATTEND General Practice
DX: C83.31 Diffuse large B-cell lymphoma, lymph nodes of head, face, and neck (principal)
CPT/HCPCS: 70491; 71260; Q9967

== ENCOUNTER → 2021-07-17 | Outpatient (CLI) | payer OTHER ==
[~2021-07-17] MED LIST changes: +DULO1CAP6 PO; -ISOVUE-370 76% 100ML VIAL As Ordered ONE
--- NOTE | 2021-07-17 14:02 | RADONC ---
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 She received R-CHOP x 6 cycles completed 12/27/20. This was complicated by BL foot drop from vincristine which was held for the final 2 cycles. She received consolidative ISRT 30.6 Gy in 17 fraction from 03/20/21- 04/12/21. She is seen today for follow up and survivorship care. Diagnosis/Treatment History Oncologic History 2019: Noted BL neck swelling July 2020: Sought medical attention at [facility] ED where CT scan revealed massive adenopathy in the BL necks 07/25/21: FNA of the neck with atypical lymphocytes 08/01/21: [facility] showing DLBCL GCB type, MYC-, BCL2+ 09/04/21: PET-CT with massive BL cervical adenopathy extending to upper mediastinum, no obvious involvement of waldeyer's ring 09/12/21-12/27/20: R-CHOP x 6 cycles, last 2 vincristine withheld d/t foot drop 03/20/21-04/12/21: Completed consolidative ISRT 30.6 Gy in 17 fractions. Recent data: 07/08/21 CT neck FINDINGS: Paranasal sinuses: There is an air-fluid level within the left maxillary sinus. Nasopharynx: Unremarkable. Oropharynx: Unremarkable. No significant tonsillar enlargement. Hypopharynx: Unremarkable. Larynx: Unremarkable. Normal epiglottis. Retropharyngeal space: Unremarkable. Submandibular/Parotid glands: Normal. Glands are normal in size. Thyroid: Normal. No enlarged or calcified nodules. Lymph nodes: Unremarkable. No lymphadenopathy. Trachea: Visualized trachea is unremarkable. Lungs: Unremarkable as visualized. Bones/joints: Unremarkable. No acute fracture. Soft tissues: Previously apparent extensive infiltrative soft tissue involving the parapharyngeal, vascular and prevertebral soft tissues with extension into the upper neck and infiltration of the left sternocleidomastoid muscle has essentially resolved. IMPRESSION: Resolution of previously apparent extensive infiltrative soft tissue mass. 07/08/21 CT chest FINDINGS: The bilateral lung payne are relatively symmetric and well aerated demonstrating minimal scattered small blebs and scattered chronic appearing interstitial changes. Subtle posterior basilar atelectasis/dependent changes are suggested. Few small 2-3 mm nodules identified. No significant nodule or mass lesion. No consolidation or pleural effusion. Mediastinum demonstrates normal pulmonary vasculature, thoracic aorta and heart/pericardium. No axillary, hilar, or mediastinal adenopathy. Thyroid gland is grossly normal by CT evaluation. Surrounding musculoskeletal structures are intact and without acute osseous abnormality. Limited upper abdomen demonstrates normal bilateral adrenal glands. IMPRESSION: 1. Minimal parenchymal changes as noted above likely essentially chronic in appearance. 2. No adenopathy. Survivorship: Test Due Next Last result Notes TSH, T4 6m post-tx, then q1y Followed by Dr. France 50 mcg synthroid Carotid US q10 y post-tx 2030 Smoking cessation Assess annually if applicable January 2022 No desire to quit today CXR or screening CT q1y once CR confirmed 2021June 2021 negative CBC,CMP, Lipids q1y 2021 Interval History Here with her mother. Feels well still smoking, no desire to quit today. Has persistent dysgeusia but some pleasant tastes have returned, has some hoarseness which remains. No pain with swallowing. Foot drop is slowly improving, neuropathy and pain persists however. Taking cymbalta/gabapentin for this. Current Therapy Surveillance Stage DLBCL GCB type Stage II Social History: 35 pack year current smoker Former drinker, does not currently Allergies / Meds Allergies: Coded Allergies: No Known Allergies (Unverified , 08/29/20) Home Meds Active Scripts Duloxetine Hcl (Duloxetine HCl) 60 Mg Capsule., 1 CAP PO QPM for 30 Days, #30 CAP 5 Refills Prov:AMARA PELAEZ MD 07/17/21 Levothyroxine Sodium (LEVOTHYROXINE SODIUM) 50 Mcg Tablet, 50 MCG PO DAILY for hypothyroid MDD 50 mg for 30 Days, #30 TAB 6 Refills Prov:LISA FRANCE MD 01/28/21 Reported Medications Gabapentin (Neurontin) 300 Mg Capsule, 300 MG PO TID for 30 Days, #90 CAP 01/28/21 Discontinued Reported Medications Duloxetine Hcl (Duloxetine HCl) 20 Mg Capsule., 40 MG PO DAILY 02/07/21 Review of Systems Review of Systems Constitutional: Reports: Fatigue; Denies: Chills, Fever, Weight Loss Eyes: Denies: Pain HEENT: Denies: Head Aches, Ear Pain, Dysphagia, Sore Throat Skin: Denies: Rash Pulmonary: Denies: Dyspnea, Cough Cardiovascular: Denies: Chest Pain Gastrointestinal: Denies: Abdominal Pain Hematologic: Denies: Bruising, Bleeding Excessively Endocrine: Denies: Cold Intolerance Musculoskeletal: Denies: Neck pain, Back pain Neurological: Reports: Weakness, Numbness Psych: Reports: Mood Normal Physical Examination Vital Signs Wt 162 lbs T 96.4 P 89 RR 16 BP 116/80 O2 97% Pain 0 Fatigue 1 General Exam: Alert, Cooperative, No Acute Distress Eye Exam: PERRLA, EOMI ENT EXAM: Atraumatic, Mucous membr. moist/pink, Tongue Midline; Negative: Other ENT (Edentulous. Oral cavity and visible portion of waldeyer's ring without lesions or mass. No trismus. Palate elevates symmetrically. No cervicatl supraclavicular or axillary adenopathy. Laryngeal crepitus intact. Elevates appropriately with swallowing. There is patchy hypopigmentation BL necks. ) Abdomen Exam: Soft Extremity Exam: Negative: Edema Neuro Exam: Normal Gait, Normal Speech, Cranial Nerves 3-12 NL, Other (Left dorsiflexion weakness grossly noted) Psych Exam: Mental status NL Diagnostic and Laboratory Diagnostic Review Radiologic images, relevant labs and pathology reports were personally reviewed and discussed with Ms. Betancourt. Assessment and Plan Impression Assessment Ms. Betancourt is a 56 year old female with a history of current smoker with bulky s tage II DLBCL of the BL cervical necks. She received R-CHOP x 6 cycles completed 12/27/20. This was complicated by BL foot drop from vincristine which was held for the final 2 cycles. She received consolidative ISRT 30.6 Gy in 17 fraction from 03/20/21-04/12/21. She is seen today for follow up and survivorship care. Her oral cavity is well healed and received only integral (trivial) dose as the field was below the oral cavity. She is clear from my standpoint for denture fitting. Any periodontal work however should be delayed another 3 months (I do not anticipate this would be needed). She has recovered completely from the acute effects of RT. No residual dysphagia or pain. She does have some CTCAE grade 1 hypopigmentation of the BL necks as well as persistent dysgeusia although tastes are returning. Encouraged her to quit smoking (spent 3 minutes in counseling). With respect to her imaging there is no evidence of hannah recurrence or de isabel disease in the chest. On exam she has no cervical adenopathy as well. Based on the CR, she has no need of routine imaging from this point and can be followed clinically. I will attempt to stagger follow up with Dr. France. She is due for TFTs today have started synthroid a few months ago, I think Dr. France is managing this. With respect to her neuropathy I think she should increase her cymbalta to the dose studied best in chemoneuropathy 60 mg daily. I sent a script for this and suggested she take in before bed as it can be sedating. I will see her next in 6 months. Performance Status ECOG 0 Plan 6 month follow up Cymbalta to 60 mg daily OK for dentures Ms. Betancourt was encouraged to call with questions or concerns in the interim period. Billing Statement Total time of [23] minutes was spent preparing for the visit [1], obtaining HPI [5], examining the patient [3], reviewing diagnostic tests [2], discussing management options [4], coordinating care [1], and writing this note [7]. AMARA PELAEZ MD Jul 17, 2021 14:02
== END ==
LOC: M ONCR 12:55
PROVIDERS: ATTEND General Practice
DX: C83.01 Small cell B-cell lymphoma, lymph nodes of head, face, and neck (principal); F17.210 Nicotine dependence, cigarettes, uncomplicated; G62.9 Polyneuropathy, unspecified; M21.372 Foot drop, left foot; Z92.21 Personal history of antineoplastic chemotherapy; Z92.3 Personal history of irradiation

== ENCOUNTER → 2021-12-25 | Outpatient (CLI) | payer OTHER ==
[~2021-12-25] MED LIST changes: +FLUC100T3 PO; +LEVO75TA4 PO; +ONDA-84 PO; -ONDA8TAB10 PO; -PROC10TA4 PO; +PROC10TA5 PO
[2021-12-25 14:28] LABS: FREE T4 0.66 NG/DL (0.76-1.46)
== END ==
LOC: M ONCR 12:49
PROVIDERS: ATTEND General Practice
DX: C83.31 Diffuse large B-cell lymphoma, lymph nodes of head, face, and neck (principal); F17.210 Nicotine dependence, cigarettes, uncomplicated; M21.372 Foot drop, left foot; M21.371 Foot drop, right foot; R68.2 Dry mouth, unspecified; Z79.890 Hormone replacement therapy; Z79.899 Other long term (current) drug therapy
CPT/HCPCS: 36415; 84439; 84443; G0463

== ENCOUNTER → 2022-02-05 | Outpatient (CLI) | payer OTHER ==
[~2022-02-05] MED LIST changes: +GASTROGRAFIN SOLUTION 30ML (Q9963) ONE; +ISOVUE-370 76% 100ML VIAL ONE
== END ==
LOC: M PLAIMG 09:22
PROVIDERS: ATTEND Specialist
DX: C83.30 Diffuse large B-cell lymphoma, unspecified site (principal)

== ENCOUNTER → 2022-07-02 | Outpatient (CLI) | payer OTHER ==
[~2022-07-02] MED LIST changes: +BUPR15TASR PO; +CYMB1CAP5 PO; -GASTROGRAFIN SOLUTION 30ML (Q9963) ONE; -ISOVUE-370 76% 100ML VIAL ONE; +NORT25CA2 PO; +SYNT100T PO
== END ==
LOC: M ONCR 13:24
PROVIDERS: ATTEND General Practice
DX: C83.31 Diffuse large B-cell lymphoma, lymph nodes of head, face, and neck (principal); M21.371 Foot drop, right foot; M21.372 Foot drop, left foot; F17.210 Nicotine dependence, cigarettes, uncomplicated; K11.7 Disturbances of salivary secretion; Z92.3 Personal history of irradiation

== ENCOUNTER → 2022-08-14 | Outpatient (CLI) | payer OTHER ==
[~2022-08-14] MED LIST changes: +GASTROGRAFIN SOLUTION 30ML (Q9963) As Ordered ONE; +ISOVUE-370 76% 100ML VIAL As Ordered ONE
== END ==
LOC: M RAD 09:10
PROVIDERS: ATTEND Specialist
DX: C83.30 Diffuse large B-cell lymphoma, unspecified site (principal)
CPT/HCPCS: 70491; 71260; 74177; Q9963; Q9967

== ENCOUNTER → 2022-09-09 | Outpatient (CLI) | payer OTHER ==
[~2022-09-09] MED LIST changes: -GASTROGRAFIN SOLUTION 30ML (Q9963) As Ordered ONE; -ISOVUE-370 76% 100ML VIAL As Ordered ONE; +PREG100C
== END ==
LOC: M WHC 07:53
PROVIDERS: ATTEND Internal Medicine Hematology & Oncology
DX: Z12.31 Encounter for screening mammogram for malignant neoplasm of breast (principal); C85.10 Unspecified B-cell lymphoma, unspecified site

== ENCOUNTER → 2022-09-15 | Outpatient (REF) | payer OTHER ==
[2022-09-15 16:49] LABS: CHOLESTEROL RISK RATIO 6.061 (<5)
[2022-09-15 19:43] LABS: APPEARANCE, URINE MANUAL CLEAR (CLEAR); COLOR, URINE MANUAL LT YELLOW (YELLOW)
[2022-09-15 19:45] LABS: PROTEIN, URINE MANUAL NEGATIVE (NEGATIVE); SPECIFIC GRAVITY,URINE MANUAL 1.005 (1.002-1.035)
[2022-09-15 19:46] LABS: BILIRUBIN, URINE MANUAL NEGATIVE (NEGATIVE); BLOOD URINE MANUAL POSITIVE (NEGATIVE); GLUCOSE, URINE (UA) MANUAL NEGATIVE (NEGATIVE); KETONE, URINE MANUAL NEGATIVE (NEGATIVE); LEUKOCYTE ESTERASE, URINE MAN TRACE (NEGATIVE); NITRITE, URINE MANUAL NEGATIVE (NEGATIVE); UROBILINOGEN, URINE MANUAL NORMAL (NORMAL)
[2022-09-15 20:26] LABS: HYALINE CAST, URINE NONE SEEN /lpf (0-1); SQUAMOUS EPITHELIAL CELL URINE SMALL AMOUNT /hpf (SMALL AMT)
[2022-09-15 20:28] LABS: BACTERIA, URINE NONE SEEN
[2022-09-15 23:03] LABS: HEMOGLOBIN A1c 5.5 %
== END ==
LOC: M LAB REF 16:04
PROVIDERS: ATTEND Nurse Practitioner Family
DX: Z13.228 Encounter for screening for other metabolic disorders (principal)

== ENCOUNTER → 2023-01-13 | Outpatient (CLI) | payer OTHER ==
[~2023-01-13] MED LIST changes: +NORT50CA PO; +VARE1TAB7 PO
== END ==
LOC: M ONCR 09:08
PROVIDERS: ATTEND General Practice
DX: C83.31 Diffuse large B-cell lymphoma, lymph nodes of head, face, and neck (principal); F17.210 Nicotine dependence, cigarettes, uncomplicated; G62.9 Polyneuropathy, unspecified; Z79.890 Hormone replacement therapy; Z79.899 Other long term (current) drug therapy; Z92.21 Personal history of antineoplastic chemotherapy; Z92.3 Personal history of irradiation

== ENCOUNTER → 2023-01-16 | Outpatient (REF) | payer OTHER ==
[2023-01-16 13:22] LABS: ALBUMIN 3.6 G/DL (3.2-5.2); ALKALINE PHOSPHATASE 124 U/L (46-116); ALT/SGPT 10 U/L (7.0-40); AST/SGOT 14 U/L (<34); BILIRUBIN,TOTAL 0.5 MG/DL (0.3-1.2); BLOOD UREA NITROGEN 13 MG/DL (9-23); CALCIUM LEVEL 9.2 MG/DL (8.5-10.1); CARBON DIOXIDE LEVEL 27 MMOL/L (20-31); CHLORIDE LEVEL 104 MMOL/L (98-107); CREATININE FOR GFR 0.93 MG/DL (0.55-1.30); FREE T4 1.08 NG/DL (0.89-1.76); GLOMERULAR FILTRATION RATE > 60.0 (>51); GLUCOSE, FASTING 95 MG/DL (60-100); POTASSIUM SERUM 4.7 MMOL/L (3.5-5.1); SODIUM LEVEL 137 MMOL/L (136-145); TOTAL PROTEIN 6.7 G/DL (5.7-8.2)
== END ==
LOC: M LAB REF 12:33
PROVIDERS: ATTEND Nurse Practitioner Family
DX: E78.2 Mixed hyperlipidemia (principal); E03.9 Hypothyroidism, unspecified

== ENCOUNTER → 2023-07-16 | Outpatient (CLI) | payer OTHER ==
[~2023-07-16] MED LIST changes: +ATOR1TAB19; +LEVO150T7 PO; -PREG100C; +PREG100C2
[2023-07-16 13:35] LABS: THYROID STIMULATING HORMONE 0.496 uIU/ML (0.55-4.78)
[2023-07-16 13:36] LABS: FREE T4 1.35 NG/DL (0.89-1.76)
== END ==
LOC: M ONCR 09:19
PROVIDERS: ATTEND General Practice
DX: C83.31 Diffuse large B-cell lymphoma, lymph nodes of head, face, and neck (principal); Z71.2 Person consulting for explanation of examination or test findings; Z79.890 Hormone replacement therapy; Z79.899 Other long term (current) drug therapy; Z87.891 Personal history of nicotine dependence; Z92.21 Personal history of antineoplastic chemotherapy; Z92.3 Personal history of irradiation
CPT/HCPCS: 36415; 84439; 84443; G0463

== ENCOUNTER → 2024-03-24 | Outpatient (REF) | payer OTHER ==
[~2024-03-24] MED LIST changes: +NORT75CA2 PO
[2024-03-24 13:16] LABS: BASO # 0.1 10^3/uL (0.0-0.2); BASO % 0.6 % (0.0-1.0); CHOLESTEROL RISK RATIO 3.19 (<5); EOS # 0.2 10^3/uL (0.0-0.5); EOS % 2.5 % (0.0-3.0); HDL CHOLESTEROL 43.8 MG/DL (>40); HEMATOCRIT 40.3 % (36.0-47.0); HEMOGLOBIN 13.2 g/dl (12.0-15.5); LDL CHOLESTEROL 70.2 MG/DL (<100); LYMPH # 2.1 10^3/uL (1.5-5.0); LYMPH % 21.7 % (24.0-44.0); MEAN CORPUSCULAR HEMOGLOBIN 30.9 pg (27.0-33.0); MEAN CORPUSCULAR HGB CONC 32.8 g/dl (32.0-36.5); MEAN CORPUSCULAR VOLUME 94.4 fl (80.0-96.0); MONO # 0.4 10^3/uL (0.0-0.8); MONO % 4.5 % (2.0-8.0); NEUTROPHILS # 6.8 10^3/uL (1.5-8.5); NEUTROPHILS % 70.3 % (36.0-66.0); NON-HDL-C 96.2 MG/DL; PLATELET COUNT, AUTOMATED 305 10^3/uL (150-450); RED BLOOD COUNT 4.27 10^6/uL (4.00-5.40); WHITE BLOOD COUNT 9.6 10^3/uL (4.0-10.0)
[2024-03-24 13:23] LABS: THYROID STIMULATING HORMONE 0.482 uIU/ML (0.55-4.78)
[2024-03-24 13:25] LABS: TOTAL 25(OH) VITAMIN D 6.6 NG/ML (20.0-100.0)
[2024-03-24 13:49] LABS: HEMOGLOBIN A1c 5.3 % (4.0-6.0)
== END ==
LOC: M LAB REF 12:05
PROVIDERS: ATTEND Nurse Practitioner Family
DX: E55.9 Vitamin D deficiency, unspecified (principal); E66.3 Overweight; E03.9 Hypothyroidism, unspecified; E78.2 Mixed hyperlipidemia; Z85.72 Personal history of non-Hodgkin lymphomas

== ENCOUNTER → 2024-04-11 | Outpatient (CLI) | payer OTHER | LOC: M WHC 08:20 | PROVIDERS: ATTEND Nurse Practitioner Family | DX: Z12.31 Encounter for screening mammogram for malignant neoplasm of breast (principal) ==

== ENCOUNTER → 2024-10-25 | Outpatient (CLI) | payer OTHER ==
[~2024-10-25] MED LIST changes: +METO1TAB87; +ROSU40TA81; +SPIR-10
[2024-10-25 09:43] LABS: HEMATOCRIT 39.3 % (36.0-47.0); HEMOGLOBIN 13.3 g/dl (12.0-15.5); MEAN CORPUSCULAR HEMOGLOBIN 31.7 pg (27.0-33.0); MEAN CORPUSCULAR HGB CONC 33.8 g/dl (32.0-36.5); MEAN CORPUSCULAR VOLUME 93.8 fl (80.0-96.0); PLATELET COUNT, AUTOMATED 246 10^3/uL (150-450); RED BLOOD COUNT 4.19 10^6/uL (4.00-5.40)
[2024-10-25 10:19] LABS: ALBUMIN 3.8 G/DL (3.2-5.2); BILIRUBIN,TOTAL 0.6 MG/DL (0.3-1.2); CALCIUM LEVEL 9.9 MG/DL (8.5-10.1); CREATININE FOR GFR 1.21 MG/DL (0.55-1.30); GLOMERULAR FILTRATION RATE 48.8 (>51); POTASSIUM SERUM 4.1 MMOL/L (3.5-5.1)
== END ==
LOC: M LAB 08:38
PROVIDERS: ATTEND Internal Medicine Cardiovascular Disease
DX: R06.02 Shortness of breath (principal)

== ENCOUNTER → 2024-11-11 | Outpatient (CLI) | payer OTHER | LOC: M EKG 10:01 | PROVIDERS: ATTEND Internal Medicine Cardiovascular Disease | DX: I49.40 Unspecified premature depolarization (principal); Z53.9 Procedure and treatment not carried out, unspecified reason ==

== ENCOUNTER → 2024-12-20 | Outpatient (CLI) | payer OTHER | LOC: M CARPUL 15:58 | PROVIDERS: ATTEND Internal Medicine Cardiovascular Disease | DX: I50.22 Chronic systolic (congestive) heart failure (principal); R94.31 Abnormal electrocardiogram [ECG] [EKG]; I27.20 Pulmonary hypertension, unspecified; I08.3 Combined rheumatic disorders of mitral, aortic and tricuspid valves ==

== ENCOUNTER → 2025-01-09 | Outpatient (CLI) | payer OTHER ==
[~2025-01-09] MED LIST changes: +TOBRSUS8 OP
[2025-01-09 11:29] LABS: ALBUMIN 3.6 G/DL (3.2-5.2); CALCIUM LEVEL 9.1 MG/DL (8.5-10.1); CREATININE FOR GFR 1.23 MG/DL (0.55-1.30); GLOMERULAR FILTRATION RATE 47.9 (>51); PHOSPHORUS LEVEL 3.3 MG/DL (2.5-4.9); POTASSIUM SERUM 3.9 MMOL/L (3.5-5.1)
== END ==
LOC: M LAB 10:17
PROVIDERS: ATTEND Internal Medicine Cardiovascular Disease
DX: I50.22 Chronic systolic (congestive) heart failure (principal)

== ENCOUNTER → 2025-05-29 | Outpatient (CLI) | payer OTHER ==
[~2025-05-29] MED LIST changes: +ACYC-438 PO; -ACYC1TAB PO; +MIDO2.5T3; -PRED50TA PO; +PRED50TA57 PO
[2025-05-29 11:38] LABS: CALCIUM LEVEL 9.2 MG/DL (8.5-10.1); CARBON DIOXIDE LEVEL 26.0 MMOL/L (20-31); CHLORIDE LEVEL 107.0 MMOL/L (98-107); CREATININE FOR GFR 1.18 MG/DL (0.55-1.30); GLOMERULAR FILTRATION RATE 53.5 (>51); MAGNESIUM LEVEL 1.9 MG/DL (1.8-2.4); PHOSPHORUS LEVEL 4.2 MG/DL (2.5-4.9); POTASSIUM SERUM 4.6 MMOL/L (3.5-5.1); SODIUM LEVEL 143.0 MMOL/L (136-145)
== END ==
LOC: M LAB 10:01
PROVIDERS: ATTEND Registered Nurse
DX: I50.22 Chronic systolic (congestive) heart failure (principal)

== ENCOUNTER → 2025-07-07 | Outpatient (CLI) | payer OTHER | LOC: M CARPUL 15:18 | PROVIDERS: ATTEND Registered Nurse | DX: I50.22 Chronic systolic (congestive) heart failure (principal) ==

== ENCOUNTER → 2025-07-11 | Outpatient (REF) | payer OTHER ==
[2025-07-11 13:19] LABS: ESTIMATED AVERAGE GLUCOSE 120.0 MG/DL (60-110)
== END ==
LOC: M LAB REF 11:59
PROVIDERS: ATTEND Nurse Practitioner Family
DX: E03.9 Hypothyroidism, unspecified (principal); E66.3 Overweight

== ENCOUNTER → 2025-07-25 | Outpatient (CLI) | payer OTHER | LOC: M RAD 09:11 | PROVIDERS: ATTEND Nurse Practitioner Family | DX: Z87.891 Personal history of nicotine dependence (principal) ==

== ENCOUNTER 2025-08-03 19:32 | Inpatient (IN) | payer OTHER ==
[~2025-08-03] VITALS: Ht 170.2 cm; Wt 73.9 kg
[~2025-08-03 19:32] MED LIST changes: -ROSU40TA81; +ROSU40TA81 PO
[2025-08-03] MEDS ORDERED: FARX1TAB3 PO (19:48)
[2025-08-03] MEDS ORDERED: SPIR-10 PO (19:48)
[2025-08-03] MEDS ORDERED: ENTR1TAB7 PO (19:48)
[2025-08-03 20:46] LABS: BASO # 0.0 10^3/uL (0.0-0.2); BASO % 0.4 % (0.0-1.0); EOS # 0.3 10^3/uL (0.0-0.5); EOS % 2.6 % (0.0-3.0); LYMPH # 2.5 10^3/uL (1.5-5.0); LYMPH % 22.0 % (24.0-44.0); MONO # 0.5 10^3/uL (0.0-0.8); MONO % 4.2 % (2.0-8.0); NEUTROPHILS # 8.0 10^3/uL (1.5-8.5); NEUTROPHILS % 70.5 % (36.0-66.0); PLATELET COUNT, AUTOMATED 227 10^3/uL (150-450)
[2025-08-03 21:00] LABS: INR 0.99
[2025-08-03 22:00] LABS: CALCIUM LEVEL 9.0 MG/DL (8.5-10.1); CARBON DIOXIDE LEVEL 25.0 MMOL/L (20-31); CHLORIDE LEVEL 110.0 MMOL/L (98-107); CREATININE FOR GFR 1.49 MG/DL (0.55-1.30); GLOMERULAR FILTRATION RATE 40.5 (>51); POTASSIUM SERUM 4.0 MMOL/L (3.5-5.1); SODIUM LEVEL 142.0 MMOL/L (136-145)
[2025-08-04] VITALS (12 sets, daily range): BP systolic 88–126; BP diastolic 52–69; TEMP 97.2–98.5; O2SAT 92–100
[2025-08-04] MEDS: ASPIRIN 325 MG TAB PO ONE (00:21)
[2025-08-04] MEDS: ATORVASTATIN 20 MG TAB PO ONE (01:19)
[2025-08-04] MEDS: LR 500 ML IV ONE (01:19)
[2025-08-04 01:37] LABS: CHOLESTEROL LEVEL 124.0 MG/DL (<200); CHOLESTEROL RISK RATIO 2.67 (<5); LDL CHOLESTEROL 45.9 MG/DL (<100); NON-HDL-C 77.7 MG/DL; TRIGLYCERIDES LEVEL 159.0 MG/DL (<150)
[2025-08-04 06:23] LABS: CHOLESTEROL LEVEL 111.0 MG/DL (<200); CHOLESTEROL RISK RATIO 2.79 (<5); LDL CHOLESTEROL 52.5 MG/DL (<100); NON-HDL-C 71.3 MG/DL; TRIGLYCERIDES LEVEL 94.0 MG/DL (<150)
[2025-08-04] MEDS ORDERED: LEVO125T4 PO (07:56)
[2025-08-04] MEDS ORDERED: METO1TAB32 PO (07:56)
[2025-08-04] MEDS ORDERED: HOME MED LIST COMPLETE! XX SCH (08:00)
[2025-08-04] MEDS ORDERED: ECOT81TA5 PO (08:08)
[2025-08-04] MEDS: DAPAGLIFLOZIN PROPANEDIOL 10 MG TABLET PO SCH (16:35)
[2025-08-04] MEDS: ENOXAPARIN 40 MG/0.4 ML SYRINGE (J1650 PER 10MG) SC ONE (16:36)
[2025-08-04] MEDS: LEVOTHYROXINE 125 MCG TABLET (0.125 MG) PO SCH (16:36)
[2025-08-04] MEDS ORDERED: PILL CUTTER 1 EACH XX ONE (16:37)
[2025-08-04] MEDS: NS (Normal Saline) 0.9% 1,000 ML IV ONE (16:37)
[2025-08-04 18:08] LABS: INR 0.95
[2025-08-04 18:28] LABS: C REACTIVE PROTEIN QUANTITATIV < 0.50 MG/DL (<1.0); RHEUMATOID FACTOR QUANT 3.6 IU/ML (<14)
[2025-08-04 18:54] LABS: ESTIMATED AVERAGE GLUCOSE 120.0 MG/DL (60-110)
[2025-08-04] MEDS: ROSUVASTATIN 10 MG TAB PO SCH (21:43)
[2025-08-05 03:58] VITALS: BP 107/58; TEMP 98.2; O2SAT 98
[2025-08-05 07:51] VITALS: BP 107/58; TEMP 97.6; O2SAT 99
[2025-08-05] MEDS: ASPIRIN 81 MG ENTERIC TABLET PO SCH (08:58)
[2025-08-05] MEDS: ENOXAPARIN 40 MG/0.4 ML SYRINGE (J1650 PER 10MG) SC SCH (08:59)
[2025-08-05 11:37] LABS: BASO # 0.1 10^3/uL (0.0-0.2); BASO % 0.6 % (0.0-1.0); EOS # 0.2 10^3/uL (0.0-0.5); EOS % 2.9 % (0.0-3.0); LYMPH # 2.6 10^3/uL (1.5-5.0); LYMPH % 31.2 % (24.0-44.0); MONO # 0.4 10^3/uL (0.0-0.8); MONO % 4.9 % (2.0-8.0); NEUTROPHILS # 4.9 10^3/uL (1.5-8.5); NEUTROPHILS % 60.0 % (36.0-66.0); PLATELET COUNT, AUTOMATED 194 10^3/uL (150-450)
[2025-08-05 11:50] VITALS: BP 112/59; TEMP 97.5; O2SAT 98
[2025-08-05 11:59] LABS: CALCIUM LEVEL 8.7 MG/DL (8.5-10.1); CARBON DIOXIDE LEVEL 21.0 MMOL/L (20-31); CHLORIDE LEVEL 111.0 MMOL/L (98-107); CREATININE FOR GFR 1.2 MG/DL (0.55-1.30); GLOMERULAR FILTRATION RATE 52.5 (>51); POTASSIUM SERUM 3.9 MMOL/L (3.5-5.1); SODIUM LEVEL 142.0 MMOL/L (136-145)
[2025-08-05 12:09] VITALS: BP 112/59
[2025-08-05] MEDS: METOPROLOL SUCC. 25 MG *XL* TAB PO SCH (12:09)
[2025-08-07 13:48] LABS: SSA SJOGRENS A <1.0 NEG AI (<1.0 NEG); SSB SJOGRENS B <1.0 NEG AI (<1.0 NEG)
[2025-08-07 17:08] LABS: HOMOCYST(E)INE SERUM 18.5 umol/L (< or = 13.4)
[2025-08-07 23:43] LABS: CARDIOLIPIN IGA ANTIBODY < 2.0 APL-U/mL (<20.0); CARDIOLIPIN IGG ANTIBODY < 2.0 GPL-U/mL (<20.0); CARDIOLIPIN IGM ANTIBODY < 2.0 MPL-U/mL (<20.0)
== END 2025-08-05 14:05 | disposition home or self-care (01) | DRG 45 ==
LOC: M ED 19:32 → M ED INP 19:33 → M PCU 08-04 03:03 → M MSPAV 08-04 17:36 → M PCU 08-04 22:00 → OBSVTOIN 08-05 07:44
PROVIDERS: ADMIT Student in an Organized Health Care Education/Training Program; ATTEND Student in an Organized Health Care Education/Training Program
DX: I63.9 Cerebral infarction, unspecified (principal); G91.1 Obstructive hydrocephalus; N17.9 Acute kidney failure, unspecified; I11.0 Hypertensive heart disease with heart failure; I50.22 Chronic systolic (congestive) heart failure; E03.9 Hypothyroidism, unspecified; E78.5 Hyperlipidemia, unspecified; G93.0 Cerebral cysts; C85.10 Unspecified B-cell lymphoma, unspecified site; Z98.2 Presence of cerebrospinal fluid drainage device; Z87.891 Personal history of nicotine dependence; Z79.890 Hormone replacement therapy; Z79.899 Other long term (current) drug therapy; Z92.21 Personal history of antineoplastic chemotherapy; Z79.82 Long term (current) use of aspirin

== ENCOUNTER → 2025-08-23 | Outpatient (REF) | payer OTHER ==
[~2025-08-23] MED LIST changes: +ECOT81TA5 PO; +ENTR1TAB7 PO; +FARX1TAB3 PO; +LEVO125T4 PO; +METO1TAB32 PO; +SPIR-10 PO
[2025-08-23 13:32] LABS: ESTIMATED AVERAGE GLUCOSE 111.0 MG/DL (60-110)
[2025-08-23 13:53] LABS: CALCIUM LEVEL 9.4 MG/DL (8.5-10.1); CARBON DIOXIDE LEVEL 25.0 MMOL/L (20-31); CHLORIDE LEVEL 109.0 MMOL/L (98-107); CREATININE FOR GFR 1.2 MG/DL (0.55-1.30); GLOMERULAR FILTRATION RATE 52.5 (>51); POTASSIUM SERUM 4.9 MMOL/L (3.5-5.1); SODIUM LEVEL 143.0 MMOL/L (136-145)
== END ==
LOC: M LAB REF 12:01
PROVIDERS: ATTEND Nurse Practitioner Family
DX: N17.9 Acute kidney failure, unspecified (principal); E66.3 Overweight

== ENCOUNTER → 2025-09-12 | Outpatient (CLI) | payer OTHER ==
[2025-09-12 10:16] LABS: ALT/SGPT 11.0 U/L (7.0-40); AST/SGOT 14.0 U/L (<34); CALCIUM LEVEL 9.3 MG/DL (8.5-10.1); CARBON DIOXIDE LEVEL 24.0 MMOL/L (20-31); CHLORIDE LEVEL 110.0 MMOL/L (98-107); CREATININE FOR GFR 1.68 MG/DL (0.55-1.30); GLOMERULAR FILTRATION RATE 35.0 (>51); POTASSIUM SERUM 4.6 MMOL/L (3.5-5.1); SODIUM LEVEL 141.0 MMOL/L (136-145)
== END ==
LOC: M LAB 09:14
PROVIDERS: ATTEND Internal Medicine Advanced Heart Failure and Transplant Cardiology
DX: I50.42 Chronic combined systolic (congestive) and diastolic (congestive) heart failure (principal); E78.2 Mixed hyperlipidemia; I42.8 Other cardiomyopathies

== ENCOUNTER → 2025-10-02 | Outpatient (CLI) | payer OTHER ==
[2025-10-02 11:59] LABS: PLATELET COUNT, AUTOMATED 230 10^3/uL (150-450)
[2025-10-02 12:32] LABS: ALT/SGPT 11.0 U/L (7.0-40); AST/SGOT 14.0 U/L (<34); CALCIUM LEVEL 8.9 MG/DL (8.5-10.1); CARBON DIOXIDE LEVEL 24.0 MMOL/L (20-31); CHLORIDE LEVEL 109.0 MMOL/L (98-107); CREATININE FOR GFR 1.67 MG/DL (0.55-1.30); GLOMERULAR FILTRATION RATE 35.3 (>51); MAGNESIUM LEVEL 1.9 MG/DL (1.8-2.4); POTASSIUM SERUM 4.7 MMOL/L (3.5-5.1); SODIUM LEVEL 139.0 MMOL/L (136-145)
== END ==
LOC: M LAB 10:56
PROVIDERS: ATTEND Physician Assistant Medical
DX: I50.20 Unspecified systolic (congestive) heart failure (principal)